=== PATIENT | male | born 1955 | race Caucasian/White ===

== ENCOUNTER 2019-11-15 05:21 | Inpatient (IN) | payer MEDICARE, OTHER ==
[2019-11-10 11:17] LABS: HEMOGLOBIN 14.2 g/dL (13.5-17.0); MEAN CORPUSCULAR HEMOGLOBIN 29.2 pg (27.0-33.4); MEAN CORPUSCULAR HGB CONC 33.9 g/dL (32.0-36.0); MEAN CORPUSCULAR VOLUME 86 fl (80-97); PLATELET COUNT 268 10^3/uL (150-450); RED BLOOD COUNT 4.88 10^6/uL (4.35-5.55); WHITE BLOOD COUNT 4.9 10^3/uL (4.0-10.5)
--- NOTE | 2019-11-10 11:19 | EKG REPORT ---
SEVERITY:- BORDERLINE ECG - SINUS RHYTHM PROBABLE LATERAL INFARCT, OLD : Confirmed by: Neha Lau MD 10-Nov-2019 11:19:07
[2019-11-10 11:34] LABS: ANION GAP 10 (5-19); BLOOD UREA NITROGEN 19 mg/dL (7-20); CALCIUM 9.5 mg/dL (8.4-10.2); CARBON DIOXIDE 26 mmol/L (22-30); CHLORIDE 101 mmol/L (98-107); GLUCOSE 134 mg/dL (75-110); POTASSIUM 5.1 mmol/L (3.6-5.0)
[2019-11-10 11:35] LABS: APPEARANCE,URINE CLEAR; BILIRUBIN,URINE NEGATIVE (NEGATIVE); COLOR,URINE YELLOW; GLUCOSE, URINE NEGATIVE (NEGATIVE); KETONES,URINE NEGATIVE (NEGATIVE); LEUKOCYTE ESTERASE,URINE NEGATIVE (NEGATIVE); NITRITE,URINE NEGATIVE (NEGATIVE); PROTEIN,URINE NEGATIVE (NEGATIVE); URINE SPECIFIC GRAVITY 1.009; UROBILINOGEN,URINE NEGATIVE mg/dL (<2.0)
--- NOTE | 2019-11-10 12:13 | RADIOLOGY REPORT (SQ) ---
EXAM DESCRIPTION: CHEST PA/LATERAL IMAGES COMPLETED DATE/TIME: 11/10/2019 12:04 pm REASON FOR STUDY: PRE-OP COMPARISON: None. EXAM PARAMETERS: NUMBER OF VIEWS: Two views. TECHNIQUE: PA and lateral views of the chest were obtained. RADIATION DOSE: NA. LIMITATIONS: None. FINDINGS: LUNGS AND PLEURA: No consolidation, pleural effusion or pneumothorax. MEDIASTINUM AND HILAR STRUCTURES: No mediastinal or hilar contour abnormality. HEART AND VASCULAR STRUCTURES: The cardiac silhouette and pulmonary vasculature are within normal lee its. BONES: No acute findings. HARDWARE: None in the chest. OTHER: No other finding. IMPRESSION: No acute cardiopulmonary process. TECHNICAL DOCUMENTATION: JOB ID: [id number] 2010 [employer]- All Rights Reserved Reading location - IP/workstation name: [email or web address]
[~2019-11-15 05:21] MED LIST: CEFAZOLIN 2 GM/D5W RTU 2 GM/50 ML RTUPB IV ONE; CEFAZOLIN 2 GM/D5W RTU 2 GM/50 ML RTUPB IV PRN; LIDOCAINE 0.5% INJ-PF (5 MG/ML) 50 ML SDV SUBCUT PRN; RINGERS SOLUTION,LACTATED 1,000 ML IV PRN
[2019-11-15] MEDS ORDERED: HYDROMORPHONE HCL INJ/PF 2 MG/ML AMPULE ONE (06:48)
[2019-11-15] MEDS ORDERED: PROPOFOL 1,000 MG/100 ML INFUS..BTL IV ONE (06:48)
[2019-11-15] MEDS ORDERED: FENTANYL CITRATE INJ/PF 100 MCG/2 ML AMPUL ONE (06:48)
[2019-11-15] MEDS ORDERED: MIDAZOLAM 2 MG/2 ML INJ ONE (06:48)
[2019-11-15] MEDS ORDERED: HEPARIN SOD (PORCINE) 1,000 UNIT/ML 10 ML VIAL ONE (07:16)
[2019-11-15] MEDS ORDERED: MINERAL OIL (STERILE) 10 ML VIAL ONE (07:16)
[2019-11-15] MEDS ORDERED: BACITRACIN INJ 50,000 UNIT VIAL ONE (07:17)
[2019-11-15] MEDS ORDERED: BUPIVACAINE INJ/PF LIPOSOME/PF 266 MG/20 ML SDV ONE (07:17)
[2019-11-15] MEDS ORDERED: BUPIVACAINE HCL 0.5 % INJ/PF 30 ML SDV ONE (07:39)
[2019-11-15] MEDS ORDERED: RINGERS SOLUTION,LACTATED 1,000 ML IV PRN (08:00)
[2019-11-15] MEDS ORDERED: OXYCODONE-ACETAMINOPHEN 5-325 MG TABLET PO PRN (08:00)
[2019-11-15] MEDS ORDERED: ACETAMINOPHEN 325 MG TABLET PO PRN (08:00)
[2019-11-15] MEDS ORDERED: MORPHINE SULFATE 10 MG/ML INJ IV PRN (08:00)
[2019-11-15] MEDS ORDERED: ACETAMINOPHEN 650 MG SUPP.RECT PR PRN (08:05)
[2019-11-15] MEDS ORDERED: ACETAMINOPHEN SOLN 325 MG/10.15 ML UDCUP PO PRN (08:05)
[2019-11-15] MEDS ORDERED: DIPHENHYDRAMINE HCL 50 MG/ML VIAL IV PRN ×2 (08:05→08:33)
[2019-11-15] MEDS ORDERED: DIPHENHYDRAMINE HCL 25 MG CAPSULE PO PRN (08:05)
[2019-11-15] MEDS ORDERED: MAGNESIUM HYDROXIDE SUSP 30 ML UDCUP PO PRN (08:05)
[2019-11-15] MEDS ORDERED: DIAZEPAM 5 MG TABLET PO PRN (08:05)
[2019-11-15] MEDS ORDERED: EPHEDRINE SULFATE INJ 50 MG/1 ML AMPULE ONE (08:15)
[2019-11-15] MEDS ORDERED: FENTANYL CITRATE INJ/PF 100 MCG/2 ML AMPUL IV PRN ×3 (08:33)
[2019-11-15] MEDS ORDERED: MEPERIDINE HCL/PF INJ 25 MG/1 ML DISP.SYRIN IV PRN (08:33)
[2019-11-15] MEDS ORDERED: ONDANSETRON HCL INJ/PF 4 MG/2 ML SDV IV PRN (08:33)
[2019-11-15] MEDS ORDERED: PROMETHAZINE HCL INJ 25 MG/1 ML VIAL IV PRN ×2 (08:33)
--- NOTE | 2019-11-15 10:14 | Operative Report ---
Operative Report DATE OF SURGERY: 11/15/19 PREOPERATIVE DIAGNOSIS: L4-5 spondylolisthesis, L4-5 spinal stenosis with neuro genic claudication, back pain, lumbar radiculitis, instability L4-5 POSTOPERATIVE DIAGNOSIS: L4-5 spondylolisthesis, L4-5 spinal stenosis with neurogenic claudication, back pain, lumbar radiculitis, instability L4-5. L4-5 anterior lateral robotically assisted interbody fusion, L4-5 posterior fusion with instrumentation and interbody spacer L4-5 left iliac crest aspiration for bone marrow aspirate concentration to be used with allograft in interbody space. OPERATION: L4-5 anterior lateral robotically assisted interbody fusion, L4-5 posterior fusion with instrumentation and interbody spacer L4-5 left iliac crest aspiration for bone marrow aspirate concentration to be used with allograft in interbody space. SURGEON: RONAL MANCUSO MINE SHIFTER: CHARLEEN DOWNS ANESTHESIA: GA COMPLICATIONS: None ESTIMATED BLOOD LOSS: 150 cc PROCEDURE: Patient is brought into the room placed under general anesthesia received 2 g of Ancef within 1 hour of cut time was placed on the Frandy table medial epicondyles and axillary areas are well-padded. Neuro monitoring leads for SSEP and cranial motor testing are placed on the patient as well as a Dailey catheter is placed preoperatively. After appropriate surgical timeout the [employer] robot is utilized and on the right posterior superior iliac spine a pin is placed and attached to the robot. After obtaining registration imaging in the AP and oblique position and verification 6.5 x 45 mm screws and 6.5 x 50 mm screws screws are inserted using portal incisions on the right and the left at L4 and L5 bilaterally. Left iliac crest is aspirated at 2 different sites total of 50 cc of bone marrow aspirate are obtained and concentrated to be used an interbody spacer with the allograft. Attention was then paid to the left sided anterior lateral portal for entry into the disc space which is carried out under navigation guidance upon verification also with x-rays and then stimulation thresholds greater than 17 mA. Upon inserting the portal into the disc space at L4-5 fluoroscopy was used to verify the position as it did also to verify the screws position. Endplate jennie and curettes and brushes are used to carry out a complete discectomy then the verify balloon is inserted to verify good contact with the endplates. Then the appropriate size mesh spacer is introduced into the interbody. The mesh spacer is soaked in bone marrow aspirate concentrate and is filled with bone graft showing good correction and good containment within the disc space at L4-5. Upon neuro monitoring testing and cranial motor testing found to be stable then the portal is removed anterior laterally and attention is then paid to the placement of the rods upon using the caliper device the appropriate length rods were determined to be 40 mm rods on the right and on the left those are passed down and locked into position and final tightened. Then the tabs are removed and the portals are irrigated with copious amounts of irrigation and the po sterior superior iliac spine pin connected to the robot is removed as well and the deep and superficial tissues were infiltrated with 1.3% Exparel 20 cc mixed with 20 cc of 0.5% bupivacaine plain. The portals are closed using 2-0 Vicryl and then Dermabond and Steri-Strips then 4 x 4's were used to cover the wounds on the right and the left and dressed with coverall tape. Please note that this procedure could not be done without the assistance of Eliceo Chaudhari working to assist with the placement of the screws positioning of the robot carrying out the aspiration through the left side iliac crest aspiration please also note that the iliac crest aspiration is carried out on the left side through a separate incision. Eliceo Chaudhari was instrumental throughout this whole process and I could not have done this procedure without his assistance as mentioned above.
[2019-11-15] MEDS ORDERED: METHOCARBAMOL INJ/PF 1000 MG/10 ML SDV ONE (10:16)
[2019-11-15] MEDS ORDERED: DIPHENHYDRAMINE HCL 50 MG/ML VIAL ONE (10:30)
--- NOTE | 2019-11-15 11:09 | RADIOLOGY REPORT (SQ) ---
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 FLUOROSCOPY TIME: 1.3 minutes. 3 images submitted to PACS. TECHNIQUE: Intra-operative fluoroscopic images of the lumbar spine were obtained during a robotic-as sisted lumbar fusion. NUMBER OF IMAGES: 3 LIMITATIONS: None. FINDINGS: Refer to the separate operative report. IMPRESSION: IMAGE(S) OBTAINED DURING PROCEDURE. COMMENT: Quality ID 145: Final reports for procedures using fluoroscopy that document radiation exp osure indices, or exposure time and number of fluorographic images (if radiation exposure indices are not available) Please consult full operative report of the attending physician for description of the procedure. TECHNICAL DOCUMENTATION: JOB ID: [id number] 2010 [employer]- All Rights Reserved Reading location - IP/workstation name: [email or web address]
--- NOTE | 2019-11-15 11:09 | RADIOLOGY REPORT (SQ) ---
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 FLUOROSCOPY TIME: 1.3 minutes. 3 images submitted to PACS. TECHNIQUE: Intra-operative fluoroscopic images of the lumbar spine were obtained during a robotic-as sisted lumbar fusion. NUMBER OF IMAGES: 3 LIMITATIONS: None. FINDINGS: Refer to the separate operative report. IMPRESSION: IMAGE(S) OBTAINED DURING PROCEDURE. COMMENT: Quality ID 145: Final reports for procedures using fluoroscopy that document radiation exp osure indices, or exposure time and number of fluorographic images (if radiation exposure indices are not available) Please consult full operative report of the attending physician for description of the procedure. TECHNICAL DOCUMENTATION: JOB ID: [id number] 2010 [employer]- All Rights Reserved Reading location - IP/workstation name: [email or web address]
[2019-11-15] MEDS: FAMOTIDINE 20 MG TABLET PO SCH ×2 (12:14→17:17)
[2019-11-15] MEDS: SENNOSIDES/DOCUSATE 8.6-50 MG 1 EACH TABLET PO SCH ×2 (12:15→17:18)
[2019-11-15] MEDS: OXYCODONE HCL IR 5 MG TABLET PO PRN ×3 (12:49→23:55)
[2019-11-15] MEDS: LACTATED RINGERS 1000 ML IV PRN ×2 (12:53→14:52)
[2019-11-15] MEDS ORDERED: CEFAZOLIN 2 GM/D5W RTU 2 GM/50 ML RTUPB IV SCH (14:00)
[2019-11-15] MEDS ORDERED: DEXAMETHASONE SOD PHOSPHATE INJ 4 MG/1 ML VIAL ONE (14:30)
[2019-11-15] MEDS ORDERED: ROCURONIUM BROMIDE INJ 50 MG/5 ML VIAL IV ONE (14:30)
[2019-11-15] MEDS ORDERED: METOCLOPRAMIDE HCL INJ/PF 10 MG/2 ML SDV ONE (14:30)
[2019-11-15] MEDS ORDERED: GLYCOPYRROLATE 1 MG/5 ML VIAL ONE (14:30)
[2019-11-15] MEDS ORDERED: ONDANSETRON HCL INJ/PF 4 MG/2 ML SDV ONE (14:30)
[2019-11-15] MEDS ORDERED: LIDOCAINE 2% INJ-PF (20 MG/ML) 2 ML AMPUL ONE (14:30)
[2019-11-15] MEDS: HYDROCODONE/ACETAMINOPHEN 5-325 MG TABLET PO PRN ×2 (14:45→18:02)
[2019-11-15] MEDS: METHOCARBAMOL 750 MG TABLET PO PRN (14:46)
[2019-11-15] MEDS: GABAPENTIN 300 MG CAPSULE PO SCH ×2 (14:46→21:42)
[2019-11-15] MEDS: CEFAZOLIN SODIUM 2 GM in DEXTROSE 5%-WATER 100 ML IV SCH ×2 (15:55→21:42)
[2019-11-16] MEDS: OXYCODONE HCL IR 5 MG TABLET PO PRN ×2 (04:11→08:39)
[2019-11-16] MEDS ORDERED: PANTOPRAZOLE SODIUM 20 MG TABLET.DR PO SCH (06:00)
[2019-11-16] MEDS: GABAPENTIN 300 MG CAPSULE PO SCH (06:20)
[2019-11-16] MEDS: CEFAZOLIN SODIUM 2 GM in DEXTROSE 5%-WATER 100 ML IV SCH (06:21)
[2019-11-16] MEDS: METHOCARBAMOL 750 MG TABLET PO PRN (08:39)
[2019-11-16] MEDS ORDERED: ASPIRIN 81 MG TABLET, ENT COATED PO ONE (08:40)
--- NOTE | 2019-11-16 08:44 | PDOC DISCHARGE SUMMARY ---
General - Admit/Disc Date/PCP Admission Date/Primary Care Provider: 11/15/19 05:21 Discharge Date: 11/16/19 - Discharge Diagnosis Final Diagnosis: s/p lumbar fusion - Additional Information Resuscitation Status: Full Code Discharge Diet: Regular Discharge Activity: Activity As Tolerated Home Medications: Amlodipine Besylate [Norvasc 5 mg Tablet] 5 mg PO DAILY 11/10/19 Omeprazole Magnesium [Prilosec Otc] 20 mg PO DAILY 11/10/19 Aspirin [Aspirin 325 mg Tablet] 325 mg PO DAILY 11/15/19 Gabapentin [Neurontin 300 mg Capsule] 300 mg PO Q8 11/15/19 Metoprolol Tartrate [Lopressor 25 mg Tablet] 25 mg PO DAILY 11/15/19 History of Present Illiness History of Present Illness: TIFFANIE GALAVIZ is a 64 year old male Physical Exam Vital Signs: Temp Pulse Resp BP Pulse Ox 97.9 F 70 16 114/59 L 96 11/16/19 07:25 11/16/19 07:25 11/16/19 07:25 11/16/19 07:25 11/16/19 07:48 Intake & Output 11/15/19 11/16/19 11/17/19 06:59 06:59 06:59 Intake Total 0 4118 Output Total 350 Balance 0 3768 Weight 78.018 kg Results Laboratory Results: WBC 4.9 10^3/uL (4.0-10.5) 11/10/19 10:11 RBC 4.88 10^6/uL (4.35-5.55) 11/10/19 10:11 Hgb 14.2 g/dL (13.5-17.0) 11/10/19 10:11 Hct 42.0 % (37.9-51.0) 11/10/19 10:11 MCV 86 fl (80-97) 11/10/19 10:11 MCH 29.2 pg (27.0-33.4) 11/10/19 10:11 MCHC 33.9 g/dL (32.0-36.0) 11/10/19 10:11 RDW 15.0 % (11.5-14.0) H 11/10/19 10:11 Plt Count 268 10^3/uL (150-450) 11/10/19 10:11 Sodium 137.4 mmol/L (137-145) 11/10/19 10:11 Potassium 4.6 mmol/L (3.6-5.0) 11/15/19 05:39 Chloride 101 mmol/L (98-107) 11/10/19 10:11 Carbon Dioxide 26 mmol/L (22-30) 11/10/19 10:11 Anion Gap 10 (5-19) 11/10/19 10:11 BUN 19 mg/dL (7-20) 11/10/19 10:11 Creatinine 0.68 mg/dL (0.52-1.25) 11/10/19 10:11 Est GFR ( Amer) > 60 (>60) 11/10/19 10:11 Est GFR (MDRD) Non-Af > 60 (>60) 11/10/19 10:11 Glucose 134 mg/dL (75-110) H 11/10/19 10:11 Calcium 9.5 mg/dL (8.4-10.2) 11/10/19 10:11 Urine Color YELLOW 11/10/19 10:25 Urine Appearance CLEAR 11/10/19 10:25 Urine pH 6.0 (5.0-9.0) 11/10/19 10:25 Ur Specific [place] 1.009 11/10/19 10:25 Urine Protein NEGATIVE mg/dL (NEGATIVE) 11/10/19 10:25 Urine Glucose (UA) NEGATIVE mg/dL (NEGATIVE) 11/10/19 10:25 Urine Ketones NEGATIVE mg/dL (NEGATIVE) 11/10/19 10:25 Urine Blood NEGATIVE (NEGATIVE) 11/10/19 10:25 Urine Nitrite NEGATIVE (NEGATIVE) 11/10/19 10:25 Urine Bilirubin NEGATIVE (NEGATIVE) 11/10/19 10:25 Urine Urobilinogen NEGATIVE mg/dL (<2.0) 11/10/19 10:25 Ur Leukocyte Esterase NEGATIVE (NEGATIVE) 11/10/19 10:25 Urine WBC (Auto) 0 /HPF 11/10/19 10:25 Urine RBC (Auto) 0 /HPF 11/10/19 10:25 Squamous Epi Cells Auto <1 /HPF 11/10/19 10:25 Urine Mucus (Auto) RARE /LPF 11/10/19 10:25 Urine Ascorbic Acid NEGATIVE (NEGATIVE) 11/10/19 10:25 COVID-19 Source NASOPHARYNGEAL 11/10/19 10:15 COVID-19 (AGUSTIN) NOT DETECTED 11/10/19 10:15 Blood Type O POSITIVE 11/15/19 05:39 Antibody Screen NEGATIVE 11/15/19 05:39 Impressions: Chest X-Ray 11/10/19 11:49 IMPRESSION: No acute cardiopulmonary process. Fluoroscopy 11/15/19 00:00 IMPRESSION: IMAGE(S) OBTAINED DURING PROCEDURE. Lumbar Spine X-Ray 11/15/19 00:00
--- NOTE | 2019-11-16 08:49 | PDOC PROGRESS REPORT ---
Subjective Progress Note for:: 11/16/19 Subjective:: POD 1 lumbar fusion: Patient reports that he is doing well and has very little pain or discomfort. He has been able to ambulate with minimal assistance. He is laying bed at time of exam. He reports that he no longer has right leg pain. Reason For Visit: LUMBAR SPONDYLOLISTHESIS,LUMBAR RADICULOPATHY, Physical Exam Vital Signs: Temp Pulse Resp BP Pulse Ox 97.9 F 70 16 114/59 L 96 11/16/19 07:25 11/16/19 07:25 11/16/19 07:25 11/16/19 07:25 11/16/19 07:48 Intake & Output 11/15/19 11/16/19 11/17/19 06:59 06:59 06:59 Intake Total 0 4118 Output Total 350 Balance 0 3768 Weight 78.018 kg General appearance: PRESENT: no acute distress, cooperative Musculoskeletal exam: PRESENT: ambulatory, normal inspection, tenderness - normal [id number] swelling and tenderness is noted. Additional comments: Dressing is clean and dry no signs of drainage noted. Exam of lower extremity, N/V intact. RLE 4.5/5 strength is noted. Neurological exam: PRESENT: alert, altered, awake Results Laboratory Results: 11/10/19 10:11 11/15/19 05:39 Impressions: Chest X-Ray 11/10/19 11:49 IMPRESSION: No acute cardiopulmonary process. Fluoroscopy 11/15/19 00:00 IMPRESSION: IMAGE(S) OBTAINED DURING PROCEDURE. Lumbar Spine X-Ray 11/15/19 00:00 IMPRESSION: IMAGE(S) OBTAINED DURING PROCEDURE. Assessment & Plan - Time Time Spent with patient: Less than 15 minutes - Inpatient Certification Post Hospital Care: D/C Transportation [employer] Documentation
[2019-11-16 08:53] VITALS: BP 153/94
[2019-11-16] MEDS: SENNOSIDES/DOCUSATE 8.6-50 MG 1 EACH TABLET PO SCH (09:04)
[2019-11-16] MEDS: FAMOTIDINE 20 MG TABLET PO SCH (09:04)
[2019-11-16] MEDS ORDERED: AMLODIPINE BESYLATE 5 MG TABLET PO SCH (10:00)
[2019-11-16] MEDS ORDERED: METOPROLOL SUCCINATE 25 MG TAB.SR.24H PO SCH (10:00)
[2019-11-16] MEDS ORDERED: (PENDING PHARMACY ID) (Metoprolol Succinate [Kapspargo Sprinkle] 25 MG) PO SCH (10:00)
[2019-11-16] MEDS ORDERED: ASPIRIN 81 MG TABLET, ENT COATED PO SCH (10:00)
[2019-11-17] MEDS ORDERED: BISACODYL 10 MG SUPP.RECT PR PRN (05:00)
[2019-11-17] MEDS ORDERED: BISACODYL 5 MG TABEC PO PRN (05:00)
== END 2019-11-16 09:25 | disposition home or self-care (01) | DRG 455 ==
LOC: INOR 05:21 → EDBD 07:30 → 4W 11:31
PROVIDERS: ADMIT Orthopaedic Surgery; ATTEND Orthopaedic Surgery
PROC: 0SG03A0 Fusion of Lumbar Vertebral Joint with Interbody Fusion Device, Anterior Approach, Anterior Column, Percutaneous Approach (ICD-10-PCS; 2019-11-15)
PROC: 0ST20ZZ Resection of Lumbar Vertebral Disc, Open Approach (ICD-10-PCS; 2019-11-15)
PROC: 07DR3ZZ Extraction of Iliac Bone Marrow, Percutaneous Approach (ICD-10-PCS; 2019-11-15)
PROC: 8E0W3CZ Robotic Assisted Procedure of Trunk Region, Percutaneous Approach (ICD-10-PCS; 2019-11-15)
PROC: 0SG0371 Fusion of Lumbar Vertebral Joint with Autologous Tissue Substitute, Posterior Approach, Posterior Column, Percutaneous Approach (ICD-10-PCS; principal; 2019-11-15 07:30)
DX: M48.062 Spinal stenosis, lumbar region with neurogenic claudication (principal); M51.36 Other intervertebral disc degeneration, lumbar region; M51.16 Intervertebral disc disorders with radiculopathy, lumbar region; M43.16 Spondylolisthesis, lumbar region; I10 Essential (primary) hypertension; K21.9 Gastro-esophageal reflux disease without esophagitis; Z88.6 Allergy status to analgesic agent; Z86.010 Personal history of colon polyps; Z83.3 Family history of diabetes mellitus; Z82.49 Family history of ischemic heart disease and other diseases of the circulatory system
CPT/HCPCS: 00630; 36415; 71046; 72100; 80048; 81001; 84132; 85027; 86850; 86900; 86901; 87070; 87635; 93005; 93010; 94799; C1713; C1781; C9290; C9803; J0690; J1100; J1170; J1200; J1644; J2250; J2270; J2405; J2704; J2765; J2800; J3010; J3490; J7060; J7120; Q9966